=== PATIENT | female | born 1945 | race Caucasian/White ===

== ENCOUNTER → 2016-05-30 | Day surgery (SDC) | payer MEDICARE, MEDICAID ==
[~2016-05-30] VITALS: Ht 162.6 cm; Wt 68.0 kg
[~2016-05-30] MED LIST: ACET-2178 PO; ASPI-1035 PO; ATROPINE SULFATE 0.4MG/ML VIAL IV PRN; CEFAZOLIN SODIUM 1000MG/VIAL ONE; FENTANYL CITRATE/PF 50MCG/ML 2ML VIAL IV PRN; FURO20TA PO; GABA-531 PO; HYDR-3927 PO; INSLAN SQ; INSULIN LISPRO 100 UNITS/ML SUBCUT ONE; INSULIN REGULAR (HUMULIN R) 300UNITS/3ML SUBCUT NR; IPRA3AMP IH; LIDOCAINE HCL 1% 20ML VIAL (Pyxis) INJ ONE; LIP40 PO; LOPE2TAB26 PO; LORA-249 PO; MEPERIDINE HCL/PF 25MG/ML CPJ IV PRN; METF750T2 PO; METO-298 PO; METOCLOPRAMIDE HCL 10MG/2ML VIAL ONE; MIDAZOLAM HCL 2 MG/2 ML VIAL ONE; MIRT15TA PO; MIRT7.5T11 PO; NIFE90TA2 PO; NITR0.4T3 SL; ONDA4TAB5 PO; ONDANSETRON HCL 4MG/2ML VIAL IV PRN; ONDANSETRON HCL 4MG/2ML VIAL ONE; PHEN100C4 PO; PHEN300C6 PO; POTA10TA15 PO; PROPOFOL 200MG/20ML VIAL IV ONE; QUET50TA11 PO; SODIUM CHLORIDE 0.9% 1,000 ML IV SCH; SUCCINYLCHOLINE CHLORIDE 200MG/10ML VIAL IV ONE; ZOLP5TAB2 PO
[2016-05-30 07:12] LABS: BASOPHILS % 0.2 % (0.0-2.0); EOSINOPHILS % 0.2 % (0.0-5.0); HEMATOCRIT. 41.1 % (36.0-48.0); LYMPHOCYTES % 32.8 % (20.0-50.0); MEAN CORPUSCULAR HEMOGLOBIN 29.1 pg (28.0-32.0); MEAN CORPUSCULAR VOLUME 85.6 fL (81.0-99.0); MONOCYTES % 7.3 % (2.0-8.0); NEUTROPHILS % 59.5 % (40.0-76.0); PLATELET 154 x1000/uL (130-400); RED CELL DISTRIBUTION WIDTH 14.9 % (11.6-14.6); WHITE BLOOD COUNT 8.1 x1000/uL (4.5-11.0)
[2016-05-30 07:15] LABS: UCG SCREEN NEGATIVE
[2016-05-30 07:20] LABS: ANION GAP 15; CALCIUM 9.2 mg/dL (8.5-10.1); CARBON DIOXIDE 30 mEq/L (21-32); CHLORIDE 97 mEq/L (98-107); INDEX HEMOLYSI 1 (1-3); INDEX ICTERIC 1 (1-4); INDEX LIPEMIC 1 (1-3); PHENYTOIN 1.5 ug/mL (10-20); UREA NITROGEN BLOOD 10 mg/dL (7-21); eGFR > 60 mL/min (>60)
[2016-05-30] MEDS: HYDROMORPHONE HCL/PF 2MG/ML CPJ IV PRN ×2 (10:50→11:17)
[2016-05-30 11:17] VITALS: BP 127/67
== END | disposition home or self-care (01) ==
LOC: OR 06:12
PROVIDERS: ATTEND Obstetrics & Gynecology Obstetrics
DX: N95.0 Postmenopausal bleeding (principal); K75.89 Other specified inflammatory liver diseases; J18.8 Other pneumonia, unspecified organism; E66.01 Morbid (severe) obesity due to excess calories; I10 Essential (primary) hypertension
CPT/HCPCS: 36415; 58558; 80048; 80185; 81025; 82962; 85025; 88305; 93005; J0330; J0690; J1170; J1815; J2250; J2405; J2765; J3010; J3490; J7030; J2704; J7040